=== PATIENT | male | born 2000 | race Caucasian/White ===

== ENCOUNTER 2024-06-07 11:49 | Emergency (ER) | payer OTHER, SELFPAY ==
[~2024-06-07] VITALS: Ht 177.8 cm; Wt 100.9 kg
[2024-06-07] MEDS ORDERED: KETOROLAC 30 MG/ML 1ML VIAL IM ONE (15:00)
[2024-06-07] MEDS ORDERED: methocarbamoL 750 MG TAB PO ONE (15:00)
[2024-06-07] MEDS ORDERED: DICL75TA PO (15:15)
[2024-06-07] MEDS ORDERED: TIZA4CAP PO (15:15)
[2024-06-07] MEDS ORDERED: GABA-282 PO (15:15)
[2024-06-07] MEDS ORDERED: LIDO5DIS41 TOP (15:15)
[2024-06-07 15:26] VITALS: BP 127/74; TEMP 97.9; O2SAT 100
== END 2024-06-07 15:28 | disposition home or self-care (01) ==
LOC: M ED 11:49
DX: M54.50 Low back pain, unspecified (principal); F41.9 Anxiety disorder, unspecified; F32.A Depression, unspecified; Z79.899 Other long term (current) drug therapy